=== PATIENT | male | born 1995 | race Caucasian/White ===

== ENCOUNTER 2018-01-25 02:49 | Emergency (ER) | payer OTHER ==
[~2018-01-25] VITALS: Ht 160 cm; Wt 74.8 kg
[2018-01-25 03:03] VITALS: BP 127/82
[2018-01-25] MEDS ORDERED: NAPROSYN500 MG PO (03:30)
== END 2018-01-25 03:46 | disposition home or self-care (01) ==
LOC: ER 02:49
DX: S63.502A Unspecified sprain of left wrist, initial encounter (principal); S63.92XA Sprain of unspecified part of left wrist and hand, initial encounter; W01.0XXA Fall on same level from slipping, tripping and stumbling without subsequent striking against object, initial encounter; Y93.89 Activity, other specified; Y92.89 Other specified places as the place of occurrence of the external cause; Y99.8 Other external cause status